=== PATIENT | male | born 1940 | race Caucasian/White ===

== ENCOUNTER → 2018-01-09 | Outpatient (CLI) | payer MEDICARE, BC ==
--- NOTE | 2018-01-09 12:11 | RAD ---
Left hip, 2 views, 01/09/2018: History: Hip pain There is mild narrowing of the left hip joint with subchondral sclerosis and marginal spurring. No fracture or dislocation is identified. The periarticular soft tissues are unremarkable. IMPRESSION: 1. Mild osteoarthritis at the left hip joint. 2. No acute abnormality is detected.
== END | disposition home or self-care (01) ==
LOC: PMG 11:15
PROVIDERS: ATTEND Physician Assistant
DX: M16.12 Unilateral primary osteoarthritis, left hip (principal)
CPT/HCPCS: 73502